=== PATIENT | male | born 1965 | race Caucasian/White ===

== ENCOUNTER 2021-12-05 18:32 | Emergency (ER) | payer BC ==
[2021-12-05 19:51] LABS: HEMOGLOBIN 15.6 gm/dl (14.0-17.5); RED BLOOD COUNT 5.01 M/UL (4.20-5.50); WHITE BLOOD COUNT 8.1 K/UL (4.5-11.0)
[2021-12-05 21:48] LABS: BUN/CREATININE RATIO 19 (0-10)
== END 2021-12-06 09:45 ==
LOC: ER1 18:32
PROVIDERS: Family Medicine
DX: U07.1 COVID-19 (principal)
CPT/HCPCS: 71045; 80053; 81001; 82150; 82550; 83690; 84484; 85025; 87040; 93005; 96365; 96366; 96375; 99285; J2270; J2405; J2543; J7030; Q9967; U0002